=== PATIENT | female | born 1955 | race Caucasian/White ===

== ENCOUNTER 2017-07-01 04:56 | Inpatient (IN) | payer OTHER ==
[2017-07-01] VITALS (11 sets, daily range): BP systolic 122–192; BP diastolic 67–85; PULSE 73–108; RESP 14–22; O2SAT 94–100
[~2017-07-01] VITALS: Ht 154.9 cm; Wt 69.1 kg
[~2017-07-01 04:56] MED LIST: AMLO5TAB2 PO; CIPR-231 PO; LEVO50TA6 PO; METR500T19 PO
--- NOTE | 2017-07-01 05:03 | ED.REPORT ---
HPI-General Illness Date of Service Jul 01, 2017 ED Provider: Dr. Shan Montesinos MD A 61 year old female with a history of hypertension, recent diverticulitis w/ phlegmon (04/2017), and Catarino's thyroiditis presents to the ED via EMS with significant left-sided facial angioedema that began just prior to arrival. This is the patient's 5th episode of facial swelling and one of the episodes has previously required intubation. A clear cause of her symptoms is unknown at this time. Her recent symptoms have prompted an extensive workup at [facility]. Lung sounds were clear for EMS and she received 0.3 epi en route. The patient took 20 mg of Benadryl prior to contacting EMS. Her current episode is now associated with a new onset non-productive cough. She denies any current tongue swelling, dysphagia or SOB. Recent medication list includes amlodipine and mesylamine. Nursing Notes Stated Complaint: FACIAL SWELLING Nursing Notes Reviewed: Yes Allergies: Coded Allergies: gluten (Verified Allergy, Intermediate, N/V/D, 01/25/16) codeine (Verified Allergy, Mild, Rash, 01/25/16) Contrast Media (Verified Allergy, Unknown, 07/01/17) ampicillin (Verified Allergy, Unknown, 07/01/17) Scheduled Amlodipine (Amlodipine) 5 Mg Tablet 7.5 MG PO DAILY Ciprofloxacin (Cipro) 500 Mg Tablet 500 MG PO BID Levothyroxine (Levothyroxine) 50 Mcg Tablet 50 MCG PO DAILY Metronidazole (Metronidazole) 500 Mg Tablet 500 MG PO TID General Time Seen by MD: 05:02 Chief Complaint Other (Facial Swelling) Hx Obtained From: Patient, EMS Arrived By: Ambulance Sudden in Onset?: No Onset Occurred: Just prior to arrival Symptom Duration: Since onset Associated with: Denies: Difficulty breathing, Difficulty swallowing, Shortness of breath Pertinent Negative: Pt denies other symptoms Recent Healthcare: No recent doctor visit, No recent hospitalization Similar Sx Previous: Yes Past Medical History Past Medical History 1. Catarino's thyroiditis 2. Hypertension 3. Diverticulitis 4. Osteopenia 5. Osteoporosis 6. Gluten intolerant Past Surgical History None reported Smoking History Never Smoker Social History Other Social History: Good social support, Local resident Ambulatory Status Independent Review of Systems + Angioedema Denies Dysphagia Full Review of Systems Ears / Nose / Throat: Denies: Tongue swelling Respiratory: Reports: Non-productive cough, Denies: Shortness of breath Complete sys rev & neg: except as marked. Physical Exam Vital Signs Vital Signs Date Time Temp Pulse Resp B/P Pulse Ox O2 Delivery O2 Flow Rate FiO2 07/01/17 05:47 93 16 124/67 95 Room Air 07/01/17 05:31 79 19 123/81 Room Air 07/01/17 05:28 95 16 100 Room Air 07/01/17 05:07 37.3 108 18 192/85 95 Room Air Initial VS: Reviewed Neck: Supple, Non-tender, Full range of motion Extremities: Vascular intact, Neuro intact, No swelling, No tenderness Skin: Warm, Dry, No cyanosis Neurologic: Alert, Oriented, Nonfocal Psychiatric: Mood/affect normal, Behavior normal, Normal thought content General/Constitutional: Awake, Alert, No acute distress Head / Eyes: Atraumatic, Normocephalic, PERRL HEAD/EYES: Left sided facial swelling involving the lip and cheek ENT: Atraumatic, Airway patent, Mucous membranes moist, Pharynx NL Mouth: Positive: Lip swelling present, Negative: Tongue abnormal Respiratory / Chest: Atraumatic, Breath sounds NL, Breath sounds = bilat, No respiratory distress Cardiovascular: Heart rate NL, Regular rhythm, Heart sounds NL Abdomen: Atraumatic, Soft Interpretation & Diagnostics Lab Results Interpretation Test 07/01/17 05:06 Hold Purple Top Tube Received (Received) Hold Blue Top Tube Received (Received) Hold [place] Top Tube Received (Received) Re-Eval/Medical Decision Med Decision/Clinical Course 61-year-old multiple episodes of angioedema presents with facial angioedema. No tongue or throat involvement at this point. Standard cocktail given including high-dose Decadron. Signed out at [address] Velasquez. Time of Eval: 05:17 Re-Evaluation/Progress Note: Patient is currently feeling anxious. Her concerns are addressed at this time and she is informed of the intended treament plan. Counseled Regarding: Diagnosis, Lab results Discharge & Departure Shift Change Sign-Out Patient Care Transferred: Yes Discussed Complaint(s): Yes Laboratory Evaluation: Ordered, not yet done Imaging Studies: Ordered, not yet done Dr. Velasquez Primary Impression: Angioedema Encounter type: initial encounter Qualified Code: T78.3XXA - Angioneurotic edema, initial encounter Discharge Condition All VS Reviewed: Yes Condition: Improved Patient Instructions: Angioedema (ED) Referrals: NOPCP (PCP) Caitlyn Danielson MD Care Transferred to: Dr. Velasquez Care Transferred at: 06:00 Scribe Attestation Portions of this note were transcribed by Yovana Gibbons. I, Dr. Montesinos, personally performed the history, physical exam and medical decision-making; I reviewed and confirmed the accuracy of the information in the transcribed note. Signed by: Yovana Gibbons, 07/01/17. Shan Montesinos MD Jul 01, 2017 05:02 YOVANA GIBBONS Jul 01, 2017 05:10
[2017-07-01] MEDS ORDERED: Famotidine Inj 20 MG in IV Premix 1 EACH IV ONE (05:10)
[2017-07-01] MEDS ORDERED: Dexamethasone Inj 20 MG in 0.9% Sodium Chloride-Pha MIX 50 ML IV ONE (05:10)
[2017-07-01] MEDS ORDERED: Epinephrine Racemic 2.25% 0.5 mL Inhalation Solution NEB ONE (05:20)
[2017-07-01] MEDS ORDERED: Senna-Docusate 8.6-50 mg Tablet PO PRN (08:25)
[2017-07-01] MEDS ORDERED: Polyethylene Glycol (PEG) 17 Gm Powder PO PRN (08:25)
[2017-07-01] MEDS ORDERED: Alum-Mag Hydrox-Simeth 30 mL Suspension PO PRN (08:25)
[2017-07-01] MEDS ORDERED: Ondansetron 2 mg/mL 2 mL Inj IVPUSH PRN (08:25)
--- NOTE | 2017-07-01 08:58 | PCM.HPMED ---
Subjective Date of Service Jul 01, 2017 Primary Provider: Admitting Physician: Danny Bailey MD Primary Care Physician: Jami Cohn MD Attending Physician: Danny Bailey MD Chief Complaint: Jinny is a 61-year-old female from home presented to the ED with left facial swelling. History of Present Illness: Patient carries a medical history significant for Catarino thyroiditis, hypertension, and diverticular disease. Per patient, she noticed left facial swelling when she woke up around 2:00 AM this morning and significantly worsen at 4 AM, thus prompting ED visit. Patient denies any tongue swelling at the time or has any breathing difficulty or swallowing, she denies any redness, rash, itchiness. Patient states that she has history of angioedema in the past. Initially started August 2016, had at least 5 incidence of tongue and facial swelling. Swelling usually occurs on the left side, however can also be on the right side and resolved within 12 hours. In one incident, her airway was obstructed and required emergent intubation (03/2017). She denies ever received fresh frozen plasma transfusion in the past due to angioedema. She has been working with an jewelry consultant Dr. Blair at [facility], however has been unable to determine exact cause of her angioedema. Of note, her father also had angioedema with tongue swelling. Patient denies any recent exposure to zaid inhibitors. She was however recently started on mesalamine for her diverticular disease as a second line medication for the last 2 weeks. And within the last 2wks, she has 2 episodes of facial swelling. Last event was 7 days ago where Benadryl seems to resolve symptoms. In the ED, patient's vitals stable, she was given racemic epi, in addition to dexamethasone, famotidine, and Benadryl. Patient admitted to the ICU for further observation given the possibility that she may need emergent intubation should her angioedema flares. Review of Systems: A comprehensive review of systems was conducted with the patient and found to be negative except as above in the History of Present Illness. Allergies Coded Allergies: gluten (Verified Allergy, Intermediate, N/V/D, 01/25/16) metronidazole (Verified Allergy, Intermediate, Hives, 07/01/17) codeine (Verified Allergy, Mild, Rash, 07/01/17) Contrast Media (Verified Allergy, Unknown, 07/01/17) ampicillin (Verified Allergy, Unknown, 07/01/17) mesalamine (Unverified Adverse Reaction, Severe, Anaphylaxis, 07/01/17) Home Medications Amlodipine 7.5 mg daily Cipro 500 mg twice a day Levothyroxine 50 daily Metronidazole 500 mg 3 times a day Mesalamine 80 mg twice a day PMH Catarino thyroiditis Hypertension Diverticular disease History recurrent facial angioedema with one episodes of intubation (03/2017) Surgical History Hernia surgery Family History Father with hx angioedema and pituitary adenoma Mother of Alzheimer disease Social History Hx Alcohol Use: Yes Hx Substance Use: No Hx Tobacco Use: No Smoking Status: Never Smoker Exam Vital Signs Vital Sign - Last Date Time Temp Pulse Resp B/P Pulse Ox O2 Delivery O2 Flow Rate FiO2 07/01/17 08:04 77 22 139/67 95 Room Air 07/01/17 05:07 37.3 Exam General: No acute distress, appropriately interactive, speaking in full sentences HEENT: Normocephalic, atraumatic. PERRLA, EOMI, Anicteric sclerae, moist conjunctivae. Right cheek swelling, no redness, no tenderness, no tooth abscess identified Neck: No JVD, No bruits. No lymphadenopathy or thyromegaly. Cardiovascular: Regular rate and rhythm with no murmurs, rubs, or gallops appreciated Pulmonary: b/l air sound with no crackles, wheezes, or rhonchi. no use of accessory muscles. Abdomen: +Bowel sound, Soft, nontender, nondistended. Extremities: No clubbing or cyanosis, no lymphedema, no b/l lower leg edema Skin: Normal temperature, turgor, and texture; no rash. No visualized skin ulcer. Neurological: CN II-VII grossly intact, moving equally on all 4 extremities Psychiatric: Normal mood and affect. AOx3 Assessment & Plan Patient is a 61-year-old female with a medical history of Catarino thyroiditis , diverticular disease, and hypertension presented with left facial swelling, admitted for angioedema. Angioedema -no airway obstruction, Mallampati score 1 -Has been on mesalamine for 2 weeks -Unknown exact trigger, possibly the mesalamine given the increase in frequency -Received Decadron, racemic epinephrine, famotidine, and Benadryl -admin to ICU for continue monitoring of airway Hypertension -Continue home amlodipine Hypothyroidism -Continue home medication Diverticular disease -Holding mesalamine -Follow-up with PCP within one week DVT prophylaxis heparin CODE STATUS full code Patient Status: Patient is admitted under observation status with expected length of stay LESS than 2 midnights due to severity of presenting symptoms, risk of adverse event, and complexity of treatment plan. VTE Prophylaxis: Sub-Q Heparin (Unfractionated) Resuscitation Status: CPR: Attempt Resuscitation Time spent 60 minutes Attending Statement The patient was seen and examined together with on July 01 and I agree with the history, exam findings, and plan as outlined in the note above. I did participate in all aspects of the services provided today, including documentation and the plan of care. This patient is admitted for recurrent angioedema which may be idiopathic or familial. In addition the possibility of allergic triggers remains. She was treated with Decadron as well as H1 and H2 blockers. We will watch her airway closely this morning. Thiago Roldan DO Jul 01, 2017 08:58 Danny Bailey MD Jul 02, 2017 09:07
[2017-07-01 09:19] LABS: EOSINOPHILS % (AUTO) 10.1 % (0-5); MONOCYTES % (AUTO) 9.9 % (4-12); Mean Corpuscular Hemoglobin 29.4 pg (27.0-35.0); Mean Corpuscular Volume 87.6 fL (81-100); NEUTROPHILS % (AUTO) 32.2 % (40-74); Platelet Count 381 bil/L (150-400)
[2017-07-01 09:45] LABS: Magnesium 2.4 mg/dL (1.6-2.6)
--- NOTE | 2017-07-01 10:00 | NUR ---
Admit Note: Patient arrived to CCU room 2013 @ 0830 via gurney and was able to transfer self to bed. A&O X3. Pt accompanied by her . SpO2: mid 90's on RA. Tele: Sinus 70's. VSS. Patient denies CP, SOB, dizziness or difficulty breathing. L AC IV patent and SL. Swelling to L lip and lower cheek noted. Pt states swelling has improved significantly since arrival to ED. No redness or swelling noted to throat or tongue. Tongue is midline. Patient is able to communicate verbally and tolerating PO intake without difficulty or N/V/D. Pulse ox and frequent rounding in place.
[2017-07-01] MEDS ORDERED: LIOT5TAB3 PO (11:15)
[2017-07-01] MEDS ORDERED: MESA800T3 PO (11:15)
[2017-07-01] MEDS ORDERED: CETI10CA PO (11:17)
[2017-07-01] MEDS ORDERED: LINA290C PO (11:17)
[2017-07-01] MEDS: Heparin 5,000 Unit/mL Inj SUBQ SCH ×2 (11:52→17:43)
[2017-07-01] MEDS ORDERED: DIPH25CA6 PO (17:37)
--- NOTE | 2017-07-01 17:43 | PCM.DIMED ---
Thiago Roldan DO 07/01/17 1743: Discharge Instructions Date of Service Jul 01, 2017 Dates of Hospitalization Jul 01, 2017 at 07:44 Discharge Diagnosis Discharge Diagnosis Angioedema Hypertension Hypothyroidism Diverticular disease Medication Instructions Additional med instructions Stop taking mesalamine for now. Should you have recurrent facial swelling/tongue swelling, you can take 50 mg of Benadryl prior to getting her son evaluated in the ED. I also recommend that you take a dose of your EpiPen Diet Discharge Diet: No restrictions Activity Discharge Activity: No restrictions Call your provider Call your provider for: Shortness of breath (to the ED should you have increasing and facial swelling/tongue swelling with difficulty breathing.), Other Patient Instructions Patient Instructions You have angioedema. The root cause of this, is to be determined however. Recommend that you follow up with the mushroom cultivator in [place] to further investigate. Again should you have recurrent of tongue swelling and/or facial swelling, please come to the ED so that the airway can be evaluated Follow-up with PCP in: 1 week Danny Bailey MD 07/02/17 0906: Discharge Instructions Attending's Statement The patient was seen and examined together with on July 01 and I agree with the history, exam findings, and plan as outlined in the note above. I did participate in all aspects of the services provided today, including documentation and the plan of care. The patient be discharged home on an additional dose of Benadryl tonight. She does have 2 epi pens at home. We did recap the importance of 911 or emergency department for recurrent angioedema. She is going to continue her cetirizine but increase this to twice a day. She will also see her PCP tomorrow and discuss with her mushroom cultivator by phone. The patient will stop her mesalamine. Thiago Roldan DO Jul 01, 2017 17:43 Danny Bailey MD Jul 02, 2017 09:06
--- NOTE | 2017-07-01 18:59 | NUR ---
Discharge Note: Discussed discharge instructions and medications with patient. Pt verbalized understanding of medication changes and need for follow-up appointment. Pt states she already has appointment with PCP for tomorrow at 0945. Pt requested that Mesalamine be added to allergy list. Hardcopy Rx was handed to patient along with educational info on Benadryl, anaphylaxis and angioedema. Swelling to L face is stable. Patient tolerating PO intake without difficulty, N/V/D. Ambulating in room without report of CP, SOB or dizziness. Pt was accompanied off unit to personal vehicle with all personal belongings and was transported home by her .
--- NOTE | 2017-07-01 19:07 | PCM.DC.MED ---
Discharge Summary Date of Service Jul 01, 2017 Dates of Hospitalization Date of Hospital Admission Jul 01, 2017 at 07:44 Date of Discharge: Jul 01, 2017 Providers: Admitting Physician: Danny Bailey MD Primary Care Physician: Jami Cohn MD Attending Physician: Danny Bailey MD Diagnosis at Time of Discharge Diagnosis at Time of Discharge Angioedema Hypertension Hypothyroidism Diverticular disease Brief History Patient carries a medical history significant for Catarino thyroiditis, hypertension, and diverticular disease. Per patient, she noticed left facial swelling when she woke up around 2:00 AM this morning and significantly worsen at 4 AM, thus prompting ED visit. Patient denies any tongue swelling at the time or has any breathing difficulty or swallowing, she denies any redness, rash, itchiness. Patient states that she has history of angioedema in the past. Initially started August 2016, had at least 5 incidence of tongue and facial swelling. Swelling usually occurs on the left side, however can also be on the right side and resolved within 12 hours. In one incident, her airway was obstructed and required emergent intubation (03/2017). She denies ever received fresh frozen plasma transfusion in the past due to angioedema. She has been working with an digital marketing analyst Dr. Blair at [facility], however has been unable to determine exact cause of her angioedema. Of note, her father also had angioedema with tongue swelling. Patient denies any recent exposure to zaid inhibitors. She was however recently started on mesalamine for her diverticular disease as a second line medication for the last 2 weeks. And within the last 2wks, she has 2 episodes of facial swelling. Last event was 7 days ago where Benadryl seems to resolve symptoms. In the ED, patient's vitals stable, she was given racemic epi, in addition to dexamethasone, famotidine, and Benadryl. Patient admitted to the ICU for further observation given the possibility that she may need emergent intubation should her angioedema flares. Hospital Course Patient is a 61-year-old female with a medical history of Catarino thyroiditis , diverticular disease, and hypertension presented with left facial swelling, limited to the ICU for further assessment and monitoring of airway due to angioedema. Patient was quickly downgraded to PCC status as her Left facial swelling has significantly decreased after about 12 hour status post medication. Patient was discharged given that there are no signs or symptoms of airway obstruction. Angioedema -no airway obstruction, Mallampati score 1 -Has been on mesalamine for 2 weeks -Unknown exact trigger, possibly the mesalamine due to the increase in frequency -received Decadron, racemic epinephrine, famotidine, and Benadryl -admitted to ICU for continue monitoring of airway -Patient agreed to be discharged with significant decrease in swelling after 12 hours post medication -Holding mesalamine upon discharge -Added Benadryl 50 mg as needed -Recommend that patient follow up with digital marketing analyst to elucidate the root caused -Patient with significant anxiety over the recurrent angioedema Hypertension -Continue home amlodipine Hypothyroidism -Continue home medication Diverticular disease -Holding mesalamine -Follow-up with PCP within one week Exam Vital Signs (Last) Date Time Temp Pulse Resp B/P Pulse Ox O2 Delivery O2 Flow Rate FiO2 07/01/17 15:34 36.7 75 18 129/69 97 Room Air Exam The patient was seen and examined the day of discharge Test 07/01/17 05:06 White Blood Count 8.3th/mm3 (3.8-10.1) Red Blood Count 4.76mil/mm3 (3.90-5.20) Hemoglobin 14.0g/dL (12.0-15.6) Hematocrit 41.7% (35.0-46.0) Mean Corpuscular Volume 87.6fL (81-100) Mean Corpuscular Hemoglobin 29.4pg (27.0-35.0) Mean Corpuscular Hemoglobin Concent 33.6% (32.0-37.0) Red Cell Distribution Width 14.3% (12.3-15.4) Platelet Count 381bil/L (150-400) Neutrophils (%) (Auto) 32.2% (40-74) Lymphocytes (%) (Auto) 46.7% (14-46) Monocytes (%) (Auto) 9.9% (4-12) Eosinophils (%) (Auto) 10.1% (0-5) Basophils (%) (Auto) 1.0% (0-3) Hold Purple Top Tube Received (Received) Hold Blue Top Tube Received (Received) Sodium Level 143mEq/L (134-144) Potassium Level 4.1mEq/L (3.5-5.2) Chloride Level 103mEq/L (97-108) Carbon Dioxide Level 21mmol/L (18-29) Blood Urea Nitrogen 13mg/dL (6-24) Creatinine 0.70mg/dL (0.57-1.00) Estimat Glomerular Filtration Rate 123mL/min (>59) Glucose Level 111mg/dL (60-99) Calcium Level 9.7mg/dL (8.5-10.1) Magnesium Level 2.4mg/dL (1.6-2.6) Total Bilirubin 0.3mg/dL (0.0-1.2) Aspartate Amino Transf (AST/SGOT) 34U/L (0-50) Alanine Aminotransferase (ALT/SGPT) 33U/L (0-32) Alkaline Phosphatase 108U/L (25-165) Total Protein 7.9g/dL (6.4-8.4) Albumin 4.7g/dL (3.4-5.0) Hold [place] Top Tube Received (Received) Discharge Medications Discharge Medications Amlodipine (Amlodipine) 5 Mg Tablet 7.5 MG PO HS (Reported) Cetirizine HCl (Zyrtec) 10 Mg Capsule 10 MG PO DAILY (Reported) Levothyroxine (Levothyroxine) 50 Mcg Tablet 50 MCG PO DAILY (Reported) Linaclotide (Linzess) 290 Mcg Capsule 290 MCG PO DAILY (Reported) Liothyronine Sodium (Liothyronine Sodium) 5 Mcg Tablet 10 MCG PO DAILY (Reported ) As needed diphenhydrAMINE HCl (Benadryl) 25 Mg Capsule 50 MG PO Q4 PRN PRN For Itching Prescribed by: MARY CARMEN JO, DO Additional med instructions Stop taking mesalamine for now. Should you have recurrent facial swelling/tongue swelling, you can take 50 mg of Benadryl prior to getting her son evaluated in the ED. I also recommend that you take a dose of your EpiPen Followup Plan Disposition: Home Follow-up plan She has an appointment with her PCP tomorrow. Dr. [place] Discharge Diet: No restrictions Discharge Activity: No restrictions Patient Instructions You have angioedema. The root cause of this, is to be determined however. Recommend that you follow up with the digital marketing analyst in [place] to further investigate. Again should you have recurrent of tongue swelling and/or facial swelling, please come to the ED so that the airway can be evaluated Follow-up with PCP in: 1 week Time spent 45 minutes Attending Statement The patient was seen and examined together with on July 01 and I agree with the history, exam findings, and plan as outlined in the note above. I did participate in all aspects of the services provided today, including documentation and the plan of care. This is a complex case of recurrent angioedema which may be hereditary versus idiopathic. The patient is discharged home where she has to rule out dependence. She will take an additional dose of Benadryl tonight. She is also going to stop her mesalamine. She has an appointment with her PCP tomorrow and will contact her digital marketing analyst. She is advised to increase her cetirizine to twice a day in the meantime. In addition she is declined oral steroids. This will be further discussed with her doctor tomorrow. copies to: Jami Cohn MDMary Carmen H Jul 01, 2017 19:07 Danny Bailey MD Jul 02, 2017 09:09
== END 2017-07-01 19:00 | disposition home or self-care (01) | DRG 916 ==
LOC: EDBD 04:56 → EDUNIT# 04:56 → SED 04:56 → CCU 07:44 → PCC 14:55
PROVIDERS: ADMIT Hospitalist; ATTEND Hospitalist
DX: T78.3XXA Angioneurotic edema, initial encounter (principal); K90.41 Non-celiac gluten sensitivity; I10 Essential (primary) hypertension; E03.9 Hypothyroidism, unspecified; M81.0 Age-related osteoporosis without current pathological fracture; T47.8X5A Adverse effect of other agents primarily affecting gastrointestinal system, initial encounter; K57.90 Diverticulosis of intestine, part unspecified, without perforation or abscess without bleeding; Y92.009 Unspecified place in unspecified non-institutional (private) residence as the place of occurrence of the external cause

== ENCOUNTER 2017-07-16 23:49 | Emergency (ER) | payer OTHER ==
[~2017-07-16 23:49] MED LIST changes: +CETI10CA PO; -CIPR-231 PO; +DIPH25CA6 PO; +LINA290C PO; +LIOT5TAB3 PO; -METR500T19 PO
--- NOTE | 2017-07-16 23:58 | ED.REPORT ---
HPI-Allergic Reaction Date of Service Jul 16, 2017 ED Provider: Jorge Luis Wallace MD Pt is a 61 year old female with a history of HTN and angioedema who presents to the ED complaining of angioedema onset today. She c/o associated mild SOB. The pt reports that she has experienced similar symptoms previously and that they are becoming more frequent. She took 50 mg of Benadryl prior to arrival with minimal relief. Pt presented to the ED on 07/01/17 with similar symptoms and she was admitted to the ED with a diagnosis of angioedema. Pt was discharged on 07/01/17. Per report, this is the pt's 6th episode of facial swelling with unknown etiology. Nursing Notes Stated Complaint: SWELLING OF FACE/LIPS/NECK Chief Complaint: Angioedema Nursing Notes Reviewed: Yes Allergies: Coded Allergies: gluten (Verified Allergy, Intermediate, N/V/D, 01/25/16) metronidazole (Verified Allergy, Intermediate, Hives, 07/01/17) codeine (Verified Allergy, Mild, Rash, 07/01/17) Contrast Media (Verified Allergy, Unknown, 07/01/17) ampicillin (Verified Allergy, Unknown, 07/01/17) mesalamine (Unverified Adverse Reaction, Severe, Anaphylaxis, 07/01/17) Scheduled Amlodipine (Amlodipine) 5 Mg Tablet 7.5 MG PO HS Cetirizine HCl (Zyrtec) 10 Mg Capsule 10 MG PO DAILY Levothyroxine (Levothyroxine) 50 Mcg Tablet 50 MCG PO DAILY Linaclotide (Linzess) 290 Mcg Capsule 290 MCG PO DAILY Liothyronine Sodium (Liothyronine Sodium) 5 Mcg Tablet 10 MCG PO DAILY Scheduled PRN diphenhydrAMINE HCl (Benadryl) 25 Mg Capsule 50 MG PO Q4 PRN PRN For Itching General Time Seen by MD: 23:58 Chief Complaint Other (Angioedema) Hx Obtained From: Patient Arrived By: Walk-in Onset Occurred: Just prior to arrival Symptom Duration: Since onset Severity: Maximum: No pain Recent Healthcare: No recent doctor visit, No recent hospitalization Similar Sx Previous: Yes Past Medical History Past Medical History Notes: Pt has experienced 5 episodes of angioedema previously of unknown etiology Past Medical History 1. Catarino's thyroiditis 2. Hypertension 3. Diverticulitis 4. Osteopenia 5. Osteoporosis 6. Gluten intolerant 7. Recurrent angioedema of unknown etiology Reports: Depression Past Surgical History None reported Smoking History Never Smoker Social History Alcohol Use: "Social" Drug Use: Denies drug use Other Social History: Good social support, Local resident Ambulatory Status Independent Review of Systems + Angioedema of the lips + Angioedema of the throat + Angioedema of the face Respiratory: Reports: Shortness of breath Neurologic: Reports: Lightheaded Complete sys rev & neg: except as marked. Physical Exam Initial Vital Signs Vital Signs (First) Date Time Temp Pulse Resp B/P Pulse Ox O2 Delivery O2 Flow Rate FiO2 07/16/17 23:59 36.8 90 20 165/83 97 Room Air Initial VS: Reviewed, Vital signs abnormal Head / Eyes: Atraumatic, Normocephalic Neck: Supple, Full range of motion Abdomen / GI: Soft, Non-tender Extremities: Vascular intact, Neuro intact Neurologic: Alert, Oriented, Nonfocal Psychiatric: Mood/affect normal, Behavior normal General/Constitutional: Awake, Alert Respiratory / Chest: Atraumatic, Breath sounds NL, Breath sounds = bilat, No wheezing, No stridor Good air movement. Cardiovascular: Heart rate NL, Regular rhythm, Heart sounds NL Skin: Atraumatic, Warm, Dry, Intact No hives ENT: Soft tissue swelling of the back of throat, tongue, and lower jaw. Re-Eval/Medical Decision Med Decision/Clinical Course 61-year-old female with recurrent angioedema. She is in the process of a complete evaluation at the [facility] asthma and allergy, and endocrinology clinics. She is not felt to have hereditary angioedema. Her allergens are not known for sure. She responded nicely to aggressive treatment here in the emergency room with epinephrine times a total of 2 doses, IV Solu- Medrol, IV Protonix, IV Benadryl. She is being discharged home in improved condition. She will return here if she has worsening again. She will follow- up with her specialist in [place]. Source of Hx: Old records Re-Evaluation/Progress #1: Time of Eval: 00:39 Re-Evaluation/Progress Note: Pt rechecked. She is minimally improved and reports that she feels lightheaded. She is in no further respiratory distress. All questions addressed. Re-Evaluation/Progress #2: Time of Eval: 01:36 Re-Evaluation/Progress Note: Pt rechecked. She is feeling better. Discussed herediatary angioedema with the pt. The pt reports that she would like to wait "a little longer" as she is feeling chest tightness. All questions addressed. Re-Evaluation/Progress #3: Time of Eval: 02:08 Re-Evaluation/Progress Note: The pt reported that she is experiencing facial swelling again. Informed pt of plan to treat with epinephrine. She understands and agrees with plan for treatment. All questions addressed. Re-Evaluation/Progress #4: Time of Eval: 04:02 Re-Evaluation/Progress Note: Pt rechecked. She is feeling better and would like to go home. Informed pt of plan for discharge. Pt understands and agrees with plan for discharge. F/U instructions and RTER warnings given. All questions addressed. Counseled Regarding: Diagnosis, Need for follow-up, When/why to return to ED Discharge & Departure Primary Impression: Angioedema Encounter type: subsequent encounter Qualified Code: T78.3XXD - Angioneurotic edema, subsequent encounter Disposition: Home Discharge Condition All VS Reviewed: Yes Condition: Stable Patient Instructions: Angioedema (ED) Additional Instructions: Continue your workup with the specialist. Continue your current medications. If you have any worsening again return to the emergency room. Referrals: Jami Cohn MD (PCP) Crit Care Except Billable Proc Time Spent: 30-74 minutes (40 minutes) Services Performed: Patient management by me, Time spent at bedside, Discussing patient care, Documentation in record Scribe Attestation Portions of this note were transcribed by Glenna Greenwood. I, Dr. Wallace personally performed the history, physical exam and medical decision-making; I reviewed and confirmed the accuracy of the information in the transcribed note. Signed by: Ava Coffey, 07/16/17. copies to: Jami Cohn MD, Howard L MD Jul 16, 2017 23:58 Glenna Ford Jul 17, 2017 00:43
[2017-07-16 23:59] VITALS: BP 165/83; PULSE 90; RESP 20; O2SAT 97
[2017-07-17] MEDS ORDERED: MethylprednisoLONE Sodium Succinate 62.5 mg/mL 2 mL Inj IVPUSH ONE (00:05)
[2017-07-17] MEDS ORDERED: Famotidine Inj 20 MG in IV Premix 1 EACH IV ONE (00:05)
[2017-07-17 00:47] VITALS: BP 147/69; PULSE 102; O2SAT 96
[2017-07-17 01:18] VITALS: BP 147/69; PULSE 102; O2SAT 96
[2017-07-17 02:26] VITALS: BP 133/75; PULSE 87; O2SAT 94
[2017-07-17 03:54] VITALS: BP 126/70; PULSE 96; RESP 18; O2SAT 93
[2017-07-17 04:18] VITALS: BP 125/67; PULSE 91; RESP 16; O2SAT 92
== END 2017-07-17 04:14 | disposition home or self-care (01) ==
LOC: SED 23:49
DX: T78.3XXA Angioneurotic edema, initial encounter (principal); Y93.89 Activity, other specified; Y92.89 Other specified places as the place of occurrence of the external cause; Y99.8 Other external cause status; R06.02 Shortness of breath; I10 Essential (primary) hypertension; F32.9 Major depressive disorder, single episode, unspecified; Z88.1 Allergy status to other antibiotic agents; Z88.8 Allergy status to other drugs, medicaments and biological substances; Z88.5 Allergy status to narcotic agent
CPT/HCPCS: 96372; 96374; 96375; 99291; J0171; J1200; J2930; J3490